=== PATIENT | male | born 1970 | race Caucasian/White ===

== ENCOUNTER 2022-06-15 19:54 | Emergency (ER) | payer SELFPAY ==
--- NOTE | 2022-06-15 20:40 | RAD REPORT ---
EXAM DESCRIPTION: CT - Ct Stroke Brain Wo Cont - 06/15/2022 8:29 pm CLINICAL HISTORY: Left-sided numbness COMPARISON: none TECHNIQUE: Computed axial tomography of the head was obtained. All CT scans are performed using dose optimization technique as appropriate and may include automated exposure control or mA/KV adjustment according to patient size. FINDINGS: An intracranial bleed is not seen . The ventricles are normal in caliber. No extra-axial fluid collection is noted. Low density area left internal capsule and right frontal lobe have the appearance of old infarction. Fluid within the sinuses/ mastoids is not seen. IMPRESSION: No acute intracranial abnormality is seen. If patient's symptoms persist MRI of the bra in would be recommended. Dr Honeycutt of the emergency room was notified at 8:29 p.m. June 15, 2022
[2022-06-15 21:08] LABS: Lymphocytes % 17.6 % (15.3-44.8); MPV 8.2 fL (7.6-11.3); RBC Red Blood Cell Count 5.22 M/uL (4.33-5.43)
[2022-06-15 21:13] LABS: Potassium 3.8 mmol/L (3.5-5.1)
[2022-06-15] MEDS ORDERED: TENECTEPLASE 50 MG/10 ML VIAL IV ONE (21:14)
[2022-06-15] MEDS ORDERED: LABETALOL 20 MG/4ML SYRINGE IV ONE (21:14)
[2022-06-15] MEDS ORDERED: FOLIC ACID 5 MG/ML VIAL ONE (21:15)
[2022-06-15] MEDS ORDERED: NA CHLORIDE 0.9% 1,000 ML ONE (21:15)
--- NOTE | 2022-06-15 21:17 | ER ---
Nurse's Notes [facility] Name: Trevor Carrera Age: 52 yrs Sex: Male : 1970 Arrival Date: 06/15/2022 Time: 19:55 Bed 7 Private MD: Diagnosis: Dizziness and giddiness;Other visual disturbances;Paresthesia of skin-left hand Presentation: 06/15 20:00 Chief complaint: Patient states: "Earlier today I was feeling what I thought was a tw5 manolo horse in the back of my neck. I went home took a nap and when I got up I was feeling dizzy and had some blurred vision. Right before going into work I started feeling numbness and tingling down my left arm.". Coronavirus screen: Vaccine status: Patient reports receiving the 2nd dose of the covid vaccine. Unknown. Ebola Screen: Patient negative for fever greater than or equal to 101.5 degrees Fahrenheit, and additional compatible Ebola Virus Disease symptoms Patient denies exposure to infectious person. Patient denies travel to an Ebola-affected area in the 21 days before illness onset. Initial Sepsis Screen: Does the patient meet any 2 criteria? No. Patient's initial sepsis screen is negative. Does the patient have a suspected source of infection? No. Patient's initial sepsis screen is negative. Risk Assessment: Do you want to hurt yourself or someone else? Patient reports no desire to harm self or others. Onset of symptoms was June 15, 2022 at 18:00. 20:00 Method Of Arrival: Ambulatory tw5 20:00 Acuity: SARA 2 tw5 20:04 An acute neurological deficit is present. The charge nurse has been notified. tw5 06/16 00:22 Pre-hospital glucose is not applicable to this patient. Triage Assessment: 06/15 20:00 The onset of the patients symptoms was less than three hours ago. 20:03 General: Appears in no apparent distress. Behavior is calm, cooperative, appropriate tw5 for age. Pain: Denies pain. 20:04 Neuro: Reports blurred vision. tw5 06/16 00:22 The onset of the patients symptoms was June 15, 2022 at 19:00. Stroke Activation: Symptom onset < 3 hours Physician: Stroke Attending; Name: ; Notified At: ; Arrived At: Physician: Chief Stroke Resident; Name: ; Notified At: ; Arrived At: Physician: Stroke Resident; Name: ; Notified At: ; Arrived At: Physician: ED Attending; Name: ; Notified At: ; Arrived At: Physician: ED Resident; Name: cristal; Notified At: ; Arrived At: Historical: - Allergies: 06/15 20:03 PENICILLINS; tw5 20:03 Iodine; tw5 - PMHx: 20:03 CVA; 2019; Hypertensive disorder; tw5 - Immunization history:: Flu vaccine is not up to date. - Social history:: Smoking status: Patient reports the use of cigarette tobacco products, smokes one pack cigarettes per day. Screenin:30 Abuse screen: Denies threats or abuse. Nutritional screening: No deficits noted. kl Tuberculosis screening: No symptoms or risk factors identified. Fall Risk Secondary diagnosis (15 points) CVA. Assessment: 20:20 VAN Scoring: Arm Drift: Patients demonstrates NO arm weakness. Patient is VAN Negative. Visual Disturbance: No visual disturbance noted. Aphasia: No aphasia noted. Neglect: No neglect noted. TNKase (Tenecteplase) Screening: Indications: Definite evidence of stroke, ischemic, embolic, or hypertensive: Yes. Treatment will start within 4.5 hours onset of symptoms: Yes. No evidence of intracranial hemorrhage or CT of head and no evidence of peripheral hemorrhage or recent CVA: Yes. Contraindications:. 20:25 Patient has been NPO before screening. The patient is alert, and able to follow commands. The patient does not exhibit slurred or garbled speech. The patient is not exhibiting difficulty speaking. The patient does not exhibit difficulty understanding words. The patient is able to swallow own secretions with no drooling or need for suction. Patient tolerated one teaspoon of water. No drooling, immediate coughing, gurgling, or clearing of the throat was noted. The patient tolerated 90mL of water. No drooling, immediate coughing, gurgling, or clearing of the throat was noted. The patient passed the bedside swallow screening. Oral medications may be given as ordered. Contact Physician for further diet orders. Provider notified of bedside swallow screening results: Grupo CARDOSO. 21:30 Reassessment: Patient appears in no apparent distress at this time. Patient and/or kl family updated on plan of care and expected duration. Pain level reassessed. Patient is alert, oriented x 3, equal unlabored respirations, skin warm/dry/pink. Patient states feeling better. Patient states symptoms have improved. 22:00 Reassessment: Patient appears in no apparent distress at this time. Patient and/or family updated on plan of care and expected duration. Pain level reassessed. Patient is alert, oriented x 3, equal unlabored respirations, skin warm/dry/pink. 23:00 Reassessment: Patient appears in no apparent distress at this time. No changes from previously documented assessment. Patient and/or family updated on plan of care and expected duration. Pain level reassessed. Patient is alert, oriented x 3, equal unlabored respirations, skin warm/dry/pink. 23:30 Reassessment: Patient appears in no apparent distress at this time. No changes from previously documented assessment. Patient and/or family updated on plan of care and expected duration. Pain level reassessed. Patient is alert, oriented x 3, equal unlabored respirations, skin warm/dry/pink. 06/16 01:01 Reassessment: Patient appears in no apparent distress at this time. pt sleeping kl respirations even nonlabored. Vital Signs: 06/15 20:00 BP 189 / 102; Pulse 93; Resp 18; Temp 98.6; Pulse Ox 98% on R/A; Weight 118.84 kg; tw5 Height 6 ft. 6 in. (198.12 cm); Pain 5/10; 20:20 BP 183 / 98; Pulse 80; Resp 18; Pulse Ox 99% on R/A; kl 21:00 Weight 116.89 kg; kl 21:30 BP 158 / 108; Pulse 75; Resp 16; Pulse Ox 98% ; kl 22:00 BP 170 / 91; Pulse 73; Pulse Ox 100% on R/A; kl 22:46 BP 170 / 91; Pulse 78; Resp 18; Pulse Ox 97% on R/A; tw5 06/16 00:32 BP 146 / 83; Pulse 80; Pulse Ox 94% ; 06/15 21:00 Body Mass Index 29.78 (116.89 kg, 198.12 cm) NIH Stroke Scale Scores: 06/15 20:17 NIHSS Score: 1 20:20 NIHSS Score: 1 kl 22:00 NIHSS Score: 0 kl 22:30 NIHSS Score: 0 ED Course: 19:55 Patient arrived in ED. am2 20:00 Arm band placed on right wrist. kl 20:00 Patient has correct armband on for positive identification. kl 20:03 Triage completed. tw5 20:27 Grupo Gonzalez PA is PHCP. cp 20:27 Grupo Honeycutt MD is Attending Physician. cp 20:30 CT Stroke Brain w/o Contrast In Process Unspecified. EDMS 20:41 Inserted saline lock: 20 gauge hand, using aseptic technique. Blood collected. oe 20:46 Basic Metabolic Panel Sent. oe 20:46 CBC with Diff Sent. oe 20:46 Protime (+inr) Sent. oe 20:46 Ptt, Activated Sent. oe 20:57 intiated a transfer with aCyla from [facility]. mw2 21:00 No apparent distress. Resting quietly. NHISS score 0 all symptoms resolved no kl complaints at this time. 21:07 Inserted saline lock: 20 gauge in right antecubital area, using aseptic technique. zm 21:08 Connected Grupo CARDOSO with the Doctor from [facility]. mw2 21:16 Stroke CXR 1 View In Process Unspecified. EDMS 21:23 Cayla Fabian from [facility] informed us that the patient will have a mw2 bed they are waiting for the ICU bed to be cleaned. 21:36 SARS RAPID Sent. zm 22:08 Cayla Fabian from [facility] called to update us that they are doing a mw2 STAT clean on the bed and will call back in 30 minutes. 22:20 initiated a transfer with Minnie from [facility]. mw2 22:26 Cheondoism denied due to capacity. mw2 22:29 CT Head Angio In Process Unspecified. EDMS 22:29 CT Neck Angio In Process Unspecified. EDMS 22:33 administrative approval given by Cayla Fabian/ patient has been accepted to [address] bed 7519/Dr. Egan accepted the patient in transfer at 2113/ report to be called to [phone]. 22:43 intiaited a transfer with Leo from [facility]. mw2 23:13 Connected Grupo CARDOSO with the Neurologist from [facility]. mw2 23:37 administrative approval given by Leo Burleson/ patient has been accepted to [facility] mw2 [place] to [facility] 8 A 812/ Dr. Garcia accepted the patient in transfer/ report to be called to [phone]. 23:44 contacted [facility] spoke to [place] to cancel the transfer per patient mw2 request. 23:53 Grey Lucio RN is Primary Nurse. as6 06/16 00:20 No provider procedures requiring assistance completed. Patient transferred, IV remains kl in place. 01:19 Primary Nurse role handed off by Grey Lucio, GARETH cp Administered Medications: 06/15 20:47 CANCELLED (Physician Discretion): Metoprolol 5 mg IVP once; Hold for SBP <100 or HR <60.cp 20:47 CANCELLED (Physician Discretion): Metoprolol 50 mg PO once cp 20:52 CANCELLED (Physician Discretion): Aspirin Chewable Tablet 81 mg PO once cp 21:20 Drug: NS 0.9% 1000 ml Route: IV; Rate: 1 bolus; Site: right antecubital; kl 21:20 Drug: foLIC Acid 1 mg Route: IVPB; Site: right antecubital; kl 21:20 Drug: Trandate (labetalol) 10 mg Route: IV; Rate: calculated rate; Site: right kl antecubital; 21:26 Drug: TNK FOR STROKE - Tenecteplase 0.25 mg/kg {Co-Signature: ll3 (Gilles carreno RN).} Route: IV; Rate: per protocol; Site: right antecubital; 22:12 Drug: SOLU-Medrol (methylPrednisoLONE) 125 mg Route: IVP; Site: right antecubital; kl 23:04 Follow up: Response: No adverse reaction kl 22:15 Drug: Pepcid (famotidine) 20 mg Route: IVP; Site: right antecubital; kl 23:04 Follow up: Response: No adverse reaction kl 22:20 Drug: Benadryl (diphenhydrAMINE) 25 mg Route: IVP; Site: right antecubital; kl 23:04 Follow up: Response: No adverse reaction kl 23:38 Drug: Ativan (LORazepam) 1 mg Route: IVP; Site: right antecubital; 06/16 00:32 Follow up: Response: No adverse reaction; Marked relief of symptoms Medication: 00:24 VIS not applicable for this client. Point of Care Testing: Blood Glucose: 06/15 20:07 Blood Glucose: 136 mg/dL; tw5 Ranges: Outcome: 21:17 ER care complete, transfer ordered by MD. morales 06/16 00:18 Transferred to [facility], Transfer form completed. X-rays sent kl w/ patient. Transferred Note: report called to Annette SERVIN Condition: improved Instructed on the need for transfer, Demonstrated understanding of instructions. 01:08 Patient left the ED. 01:31 Patient left the ED. ll3 NIH Stroke Scale - NIH Stroke Score Date: 06/15/2022 Time: 20:17 Total Score = 1 1a. Level of Consciousness (LOC) - 0(Alert) 1b. Level of Consciousness (LOC) (Month \\T\\ Age) - 0(Both) 1c. LOC Commands (Open \\T\\ Closes Eyes/Chemic Mangler) - 0(Both) 2. Best Gaze (Lateral Gaze Paresis) - 0(Normal) 3. Visual Field Loss - 0(No visual loss) 4. Facial Palsy - 0(Normal) 5a. Left Arm: Motor (10-second hold) - 0(No drift) 5b. Right Arm: Motor (10-second hold) - 0(No drift) 6a. Left Leg: Motor (5-second hold - always test supine) - 0(No drift) 6b. Right Leg: Motor (5-second hold - always test supine) - 0(No drift) 7. Limb Ataxia (finger/nose \\T\\ heel/muhammad - test with eyes open) - 0(Absent) 8. Sensory Loss (pinprick arms/legs/face) - 1(Mild to moderate loss) 9. Best Language: Aphasia (description/naming/reading) - 0(No aphasia) 10. Dysarthria (speech clarity - read or repeat words) - 0(Normal) 11. Extinction and Inattention (visual/tactile/auditory/spatial/personal) - 0(No abnormality) Initials: andrew NIH Stroke Scale - NIH Stroke Score Date: 06/15/2022 Time: 20:20 Total Score = 1 1a. Level of Consciousness (LOC) - 0(Alert) 1b. Level of Consciousness (LOC) (Month \\T\\ Age) - 0(Both) 1c. LOC Commands (Open \\T\\ Closes Eyes/Chemic Mangler) - 0(Both) 2. Best Gaze (Lateral Gaze Paresis) - 0(Normal) 3. Visual Field Loss - 0(No visual loss) 4. Facial Palsy - 0(Normal) 5a. Left Arm: Motor (10-second hold) - 0(No drift) 5b. Right Arm: Motor (10-second hold) - 0(No drift) 6a. Left Leg: Motor (5-second hold - always test supine) - 0(No drift) 6b. Right Leg: Motor (5-second hold - always test supine) - 0(No drift) 7. Limb Ataxia (finger/nose \\T\\ heel/muhammad - test with eyes open) - 0(Absent) 8. Sensory Loss (pinprick arms/legs/face) - 0(Normal) 9. Best Language: Aphasia (description/naming/reading) - 0(No aphasia) 10. Dysarthria (speech clarity - read or repeat words) - 0(Normal) 11. Extinction and Inattention (visual/tactile/auditory/spatial/personal) - 1(Present) Initials: NIH Stroke Scale - NIH Stroke Score Date: 06/15/2022 Time: 22:00 Total Score = 0 1a. Level of Consciousness (LOC) - 0(Alert) 1b. Level of Consciousness (LOC) (Month \\T\\ Age) - 0(Both) 1c. LOC Commands (Open \\T\\ Closes Eyes/Chemic Mangler) - 0(Both) 2. Best Gaze (Lateral Gaze Paresis) - 0(Normal) 3. Visual Field Loss - 0(No visual loss) 4. Facial Palsy - 0(Normal) 5a. Left Arm: Motor (10-second hold) - 0(No drift) 5b. Right Arm: Motor (10-second hold) - 0(No drift) 6a. Left Leg: Motor (5-second hold - always test supine) - 0(No drift) 6b. Right Leg: Motor (5-second hold - always test supine) - 0(No drift) 7. Limb Ataxia (finger/nose \\T\\ heel/muhammad - test with eyes open) - 0(Absent) 8. Sensory Loss (pinprick arms/legs/face) - 0(Normal) 9. Best Language: Aphasia (description/naming/reading) - 0(No aphasia) 10. Dysarthria (speech clarity - read or repeat words) - 0(Normal) 11. Extinction and Inattention (visual/tactile/auditory/spatial/personal) - 0(No abnormality) Initials: wai NIH Stroke Scale - NIH Stroke Score Date: 06/15/2022 Time: 22:30 Total Score = 0 1a. Level of Consciousness (LOC) - 0(Alert) 1b. Level of Consciousness (LOC) (Month \\T\\ Age) - 0(Both) 1c. LOC Commands (Open \\T\\ Closes Eyes/Chemic Mangler) - 0(Both) 2. Best Gaze (Lateral Gaze Paresis) - 0(Normal) 3. Visual Field Loss - 0(No visual loss) 4. Facial Palsy - 0(Normal) 5a. Left Arm: Motor (10-second hold) - 0(No drift) 5b. Right Arm: Motor (10-second hold) - 0(No drift) 6a. Left Leg: Motor (5-second hold - always test supine) - 0(No drift) 6b. Right Leg: Motor (5-second hold - always test supine) - 0(No drift) 7. Limb Ataxia (finger/nose \\T\\ heel/muhammad - test with eyes open) - 0(Absent) 8. Sensory Loss (pinprick arms/legs/face) - 0(Normal) 9. Best Language: Aphasia (description/naming/reading) - 0(No aphasia) 10. Dysarthria (speech clarity - read or repeat words) - 0(Normal) 11. Extinction and Inattention (visual/tactile/auditory/spatial/personal) - 0(No abnormality) Initials: wai Signatures: Dispatcher [employer] EDAshely Haji RN RN Grupo Coburn PA PA cp Espinosa, Phil Trujillo, Char am2 David Mello mw2 Brigette Weaver tw5 Grey Lucio RN RN as6 Gilles Gonzales RN RN ll3 Judie Giles RN ll3 Corrections: (The following items were deleted from the chart) 06/15 20:05 20:04 No acute neurological deficit is noted. tw5 tw5
--- NOTE | 2022-06-15 21:17 | EDPHYS ---
Physician Documentation [facility] Name: Trevor Carrera Age: 52 yrs Sex: Male : 1970 Arrival Date: 06/15/2022 Time: 19:55 Bed 7 Private MD: ED Physician Grupo Honeycutt HPI: 06/15 20:08 This 52 yrs old Male presents to ER via Ambulatory with complaints of Numbness Of Arm, cp Blurred Vision. 20:08 The patient's problem is reported as paresthesias, in left upper extremity, dizziness, cp blurred vision. Onset: The symptoms/episode began/occurred today, about 1900 while driving to work. Duration: The episode is continuous. Patient's baseline: Neuro: alert and fully oriented, Motor: no deficits, Ambulation: walks without assistance, Speech: normal, The patient has a previous history of CVA, HTN. Historical: - Allergies: 20:03 PENICILLINS; tw5 20:03 Iodine; tw5 - PMHx: 20:03 CVA; 2019; Hypertensive disorder; tw - Immunization history:: Flu vaccine is not up to date. - Social history:: Smoking status: Patient reports the use of cigarette tobacco products, smokes one pack cigarettes per day. ROS: 20:10 Constitutional: Negative for body aches, chills, fever, poor PO intake. cp 20:10 Cardiovascular: Negative for chest pain, edema, palpitations. 20:10 Eyes: Positive for visual disturbance, Negative for pain, redness, vision loss. cp 20:10 Neck: Positive for pain at rest. 20:10 Respiratory: Negative for cough, shortness of breath, wheezing. 20:10 Abdomen/GI: Negative for abdominal pain, nausea, vomiting, and diarrhea, constipation. 20:10 Neuro: Positive for dizziness, numbness, of the left arm, Negative for altered mental status, headache, speech changes, syncope, weakness. 20:10 All other systems are negative. cp Exam: 20:15 Radiologist reports: no acute findings cp 20:15 Head/Face: Normocephalic, atraumatic. cp 20:15 Constitutional: The patient appears in no acute distress, alert, awake, comfortable, non-diaphoretic, non-toxic, well developed, well nourished. 20:15 Eyes: Periorbital structures: appear normal, Pupils: equal, round, and reactive to light and accomodation, Extraocular movements: intact throughout, Conjunctiva: normal, no exudate, no injection, Sclera: no appreciated abnormality, Lids and lashes: appear normal, bilaterally, Visual petersen: are intact. 20:15 ENT: External ear(s): are unremarkable, Nose: is normal, Mouth: Lips: moist, Oral mucosa: pink and intact, moist, Posterior pharynx: Airway: no evidence of obstruction, patent, erythema, is not appreciated, exudate, is not appreciated. 20:15 Neck: ROM/movement: is normal, is supple, without pain, no range of motions limitations, no nuchal rigidity. 20:15 Chest/axilla: Inspection: normal, Palpation: is normal, no crepitus, no tenderness. 20:15 Cardiovascular: Rate: normal, Rhythm: regular, Heart sounds: murmur, not appreciated, Edema: is not appreciated, JVD: is not appreciated. 20:15 Respiratory: the patient does not display signs of respiratory distress, Respirations: normal, no use of accessory muscles, no retractions, labored breathing, is not present, Breath sounds: are clear throughout, no decreased breath sounds, no stridor, no wheezing. 20:15 Abdomen/GI: Inspection: abdomen appears normal, Palpation: abdomen is soft and non-tender, in all quadrants. 20:15 Back: pain, is absent, ROM is normal. 20:15 Neuro: Orientation: to person, place \T\ time. Mentation: is normal, Motor: moves all fours, strength is normal, Sensation: numbness, that is mild, of the left arm. 21:00 ECG was reviewed by the Attending Physician. cp Vital Signs: 20:00 BP 189 / 102; Pulse 93; Resp 18; Temp 98.6; Pulse Ox 98% on R/A; Weight 118.84 kg; tw5 Height 6 ft. 6 in. (198.12 cm); Pain 5/10; 20:20 BP 183 / 98; Pulse 80; Resp 18; Pulse Ox 99% on R/A; kl 21:00 Weight 116.89 kg; kl 21:30 BP 158 / 108; Pulse 75; Resp 16; Pulse Ox 98% ; kl 22:00 BP 170 / 91; Pulse 73; Pulse Ox 100% on R/A; kl 22:46 BP 170 / 91; Pulse 78; Resp 18; Pulse Ox 97% on R/A; tw5 06/16 00:32 BP 146 / 83; Pulse 80; Pulse Ox 94% ; kl 06/15 21:00 Body Mass Index 29.78 (116.89 kg, 198.12 cm) kl NIH Stroke Scale Scores: 06/15 20:17 NIHSS Score: 1 cp 20:20 NIHSS Score: 1 kl 22:00 NIHSS Score: 0 kl 22:30 NIHSS Score: 0 kl MDM: 20:29 Patient medically screened. rosa 20:45 Physician consultation: Nish Moreland MD was called at 20:45, was contacted at 20:45, cp regarding patient's condition, recommends administration of tnk. 22:15 Test interpretation: by ED physician or midlevel provider: ECG, plain radiologic cp studies. 22:30 Counseling: I had a detailed discussion with the patient and/or guardian regarding: the cp historical points, exam findings, and any diagnostic results supporting the discharge/admit diagnosis, the presence of at least one elevated blood pressure reading (>120/80) during this emergency department visit, lab results, radiology results, the need to transfer to another facility, for higher level of care, [facility] does not immediately have the required specialist. 22:30 ED course: Patient accepted for transfer to [facility], but refuses transfer and cp requests to be transferred to [facility]. 23:30 Data reviewed: vital signs, nurses notes, lab test result(s), EKG, radiologic studies, cp CT scan, plain films. 23:30 ED course: [facility] at capacity and declined transfer, will transfer to [facility]. cp 06/15 20:18 Order name: Glucose, Ancillary Testing; Complete Time: 21:11 EDMS 06/15 20:24 Order name: Basic Metabolic Panel; Complete Time: 22:11 [facility] 06/15 20:24 Order name: CBC with Diff; Complete Time: 22:11 [facility] 06/15 20:24 Order name: Protime (+inr); Complete Time: 22:11 [facility] 06/15 20:24 Order name: Ptt, Activated; Complete Time: 22:11 [facility] 06/15 20:54 Order name: SARS RAPID; Complete Time: 22:11 [facility] 06/15 20:24 Order name: CT Stroke Brain w/o Contrast; Complete Time: 21:11 mw2 06/15 20:24 Order name: Stroke CXR 1 View; Complete Time: 22:11 mw2 06/15 21:35 Order name: CT Head Angio; Complete Time: 23:21 cp 06/15 21:35 Order name: CT Neck Angio; Complete Time: 23:21 cp 06/15 22:02 Order name: Troponin High Sensitivity; Complete Time: 23:21 cp 06/15 20:24 Order name: EKG; Complete Time: 20:25 mw2 06/15 20:24 Order name: Accucheck; Complete Time: 20:46 mw2 06/15 20:24 Order name: Cardiac monitoring; Complete Time: 21:35 mw2 06/15 20:24 Order name: EKG - Nurse/Tech; Complete Time: 21:36 mw2 06/15 20:24 Order name: IV Saline Lock; Complete Time: 20:46 mw2 06/15 20:24 Order name: Labs collected and sent; Complete Time: 20:47 mw2 06/15 20:24 Order name: NPO; Complete Time: 21:35 mw2 06/15 20:24 Order name: O2 Per Protocol; Complete Time: 21:35 mw2 06/15 20:24 Order name: O2 Sat Monitoring; Complete Time: 21:35 mw2 06/15 20:24 Order name: Stroke Swallow Screen; Complete Time: 21:35 mw2 EC:00 Rate is 84 beats/min. Rhythm is regular. AR interval is normal. QRS interval is normal. cp QT interval is normal. T waves are Flattened in leads I, aVL, aVR. Interpreted by me. Reviewed by me. Administered Medications: 20:47 CANCELLED (Physician Discretion): Metoprolol 5 mg IVP once; Hold for SBP <100 or HR <60.cp 20:47 CANCELLED (Physician Discretion): Metoprolol 50 mg PO once cp 20:52 CANCELLED (Physician Discretion): Aspirin Chewable Tablet 81 mg PO once cp 21:20 Drug: NS 0.9% 1000 ml Route: IV; Rate: 1 bolus; Site: right antecubital; kl 21:20 Drug: foLIC Acid 1 mg Route: IVPB; Site: right antecubital; kl 21:20 Drug: Trandate (labetalol) 10 mg Route: IV; Rate: calculated rate; Site: right kl antecubital; 21:26 Drug: TNK FOR STROKE - Tenecteplase 0.25 mg/kg {Co-Signature: ll3 (Gilles carreno RN).} Route: IV; Rate: per protocol; Site: right antecubital; 22:12 Drug: SOLU-Medrol (methylPrednisoLONE) 125 mg Route: IVP; Site: right antecubital; kl 23:04 Follow up: Response: No adverse reaction kl 22:15 Drug: Pepcid (famotidine) 20 mg Route: IVP; Site: right antecubital; kl 23:04 Follow up: Response: No adverse reaction kl 22:20 Drug: Benadryl (diphenhydrAMINE) 25 mg Route: IVP; Site: right antecubital; kl 23:04 Follow up: Response: No adverse reaction kl 23:38 Drug: Ativan (LORazepam) 1 mg Route: IVP; Site: right antecubital; 06/16 00:32 Follow up: Response: No adverse reaction; Marked relief of symptoms Point of Care Testing: Blood Glucose: 06/15 20:07 Blood Glucose: 136 mg/dL; tw5 Ranges: Critical Glucose Levels:Adult <50 mg/dl or >400 mg/dl <40 mg/dl or >180 mg/dl Disposition Summary: 06/15/22 21:17 Transfer Ordered Transfer Location: [facility] cp Reason: Higher level of care cp Condition: Stable cp Problem: new cp Symptoms: have improved cp Accepting Physician: DR Garcia(06/16/22 01:31) ll3 Diagnosis - Dizziness and giddiness cp - Other visual disturbances cp - Paresthesia of skin - left hand cp Forms: - Medication Reconciliation Form cp - SBAR form cp NIH Stroke Scale - NIH Stroke Score Date: 06/15/2022 Time: 20:17 Total Score = 1 1a. Level of Consciousness (LOC) - 0(Alert) 1b. Level of Consciousness (LOC) (Month \T\ Age) - 0(Both) 1c. LOC Commands (Open \T\ Closes Eyes/Director Of Clinical Applications) - 0(Both) 2. Best Gaze (Lateral Gaze Paresis) - 0(Normal) 3. Visual Field Loss - 0(No visual loss) 4. Facial Palsy - 0(Normal) 5a. Left Arm: Motor (10-second hold) - 0(No drift) 5b. Right Arm: Motor (10-second hold) - 0(No drift) 6a. Left Leg: Motor (5-second hold - always test supine) - 0(No drift) 6b. Right Leg: Motor (5-second hold - always test supine) - 0(No drift) 7. Limb Ataxia (finger/nose \T\ heel/muhammad - test with eyes open) - 0(Absent) 8. Sensory Loss (pinprick arms/legs/face) - 1(Mild to moderate loss) 9. Best Language: Aphasia (description/naming/reading) - 0(No aphasia) 10. Dysarthria (speech clarity - read or repeat words) - 0(Normal) 11. Extinction and Inattention (visual/tactile/auditory/spatial/personal) - 0(No abnormality) Initials: cp NIH Stroke Scale - NIH Stroke Score Date: 06/15/2022 Time: 20:20 Total Score = 1 1a. Level of Consciousness (LOC) - 0(Alert) 1b. Level of Consciousness (LOC) (Month \T\ Age) - 0(Both) 1c. LOC Commands (Open \T\ Closes Eyes/Director Of Clinical Applications) - 0(Both) 2. Best Gaze (Lateral Gaze Paresis) - 0(Normal) 3. Visual Field Loss - 0(No visual loss) 4. Facial Palsy - 0(Normal) 5a. Left Arm: Motor (10-second hold) - 0(No drift) 5b. Right Arm: Motor (10-second hold) - 0(No drift) 6a. Left Leg: Motor (5-second hold - always test supine) - 0(No drift) 6b. Right Leg: Motor (5-second hold - always test supine) - 0(No drift) 7. Limb Ataxia (finger/nose \T\ heel/muhammad - test with eyes open) - 0(Absent) 8. Sensory Loss (pinprick arms/legs/face) - 0(Normal) 9. Best Language: Aphasia (description/naming/reading) - 0(No aphasia) 10. Dysarthria (speech clarity - read or repeat words) - 0(Normal) 11. Extinction and Inattention (visual/tactile/auditory/spatial/personal) - 1(Present) Initials: NIH Stroke Scale - NIH Stroke Score Date: 06/15/2022 Time: 22:00 Total Score = 0 1a. Level of Consciousness (LOC) - 0(Alert) 1b. Level of Consciousness (LOC) (Month \T\ Age) - 0(Both) 1c. LOC Commands (Open \T\ Closes Eyes/Director Of Clinical Applications) - 0(Both) 2. Best Gaze (Lateral Gaze Paresis) - 0(Normal) 3. Visual Field Loss - 0(No visual loss) 4. Facial Palsy - 0(Normal) 5a. Left Arm: Motor (10-second hold) - 0(No drift) 5b. Right Arm: Motor (10-second hold) - 0(No drift) 6a. Left Leg: Motor (5-second hold - always test supine) - 0(No drift) 6b. Right Leg: Motor (5-second hold - always test supine) - 0(No drift) 7. Limb Ataxia (finger/nose \T\ heel/muhammad - test with eyes open) - 0(Absent) 8. Sensory Loss (pinprick arms/legs/face) - 0(Normal) 9. Best Language: Aphasia (description/naming/reading) - 0(No aphasia) 10. Dysarthria (speech clarity - read or repeat words) - 0(Normal) 11. Extinction and Inattention (visual/tactile/auditory/spatial/personal) - 0(No abnormality) Initials: NIH Stroke Scale - NIH Stroke Score Date: 06/15/2022 Time: 22:30 Total Score = 0 1a. Level of Consciousness (LOC) - 0(Alert) 1b. Level of Consciousness (LOC) (Month \T\ Age) - 0(Both) 1c. LOC Commands (Open \T\ Closes Eyes/Director Of Clinical Applications) - 0(Both) 2. Best Gaze (Lateral Gaze Paresis) - 0(Normal) 3. Visual Field Loss - 0(No visual loss) 4. Facial Palsy - 0(Normal) 5a. Left Arm: Motor (10-second hold) - 0(No drift) 5b. Right Arm: Motor (10-second hold) - 0(No drift) 6a. Left Leg: Motor (5-second hold - always test supine) - 0(No drift) 6b. Right Leg: Motor (5-second hold - always test supine) - 0(No drift) 7. Limb Ataxia (finger/nose \T\ heel/muhammad - test with eyes open) - 0(Absent) 8. Sensory Loss (pinprick arms/legs/face) - 0(Normal) 9. Best Language: Aphasia (description/naming/reading) - 0(No aphasia) 10. Dysarthria (speech clarity - read or repeat words) - 0(Normal) 11. Extinction and Inattention (visual/tactile/auditory/spatial/personal) - 0(No abnormality) Initials: kl Signatures: Dispatcher [employer] EDMS Ashely López RN Grupo Clement MD MD cha Page, Corey, PA PA cp [place], MyKena mw2 Kendrick Balbuena DO DO ms3 Brigette Weaver tw5 Gilles Gonzales RN RN ll3 Gilles Gonzales RN ll3 Corrections: (The following items were deleted from the chart) 20:47 20:35 Metoprolol 5 mg IVP once; Hold for SBP <100 or HR <60. ordered. [facility] 20:47 20:35 Metoprolol 50 mg PO once ordered. [facility] 20:52 20:35 Aspirin Chewable Tablet 81 mg PO once ordered. [facility] 06/16 01:08 06/15 21:17 Doctor andrew 06/16 01:19 01:08 Doctor [facility] 01:31 01:19 DR Garcia cp ll3 23:36 06/15 20:33 Constitutional: Negative for body aches, chills, fever, poor PO cp intake, cp 06/16 23:36 06/15 20:33 Cardiovascular: Negative for chest pain, edema, palpitations, cp 06/16 23:37 06/15 20:30 This 52 yrs old Male presents to ER via Ambulatory with complaints cp of Numbness Of Arm, Blurred Vision. cp 06/16 23:37 06/15 20:30 The patient's problem is reported as paresthesias, in left upper cp extremity, dizziness, blurred vision, cp 06/16 23:37 06/15 20:30 Onset: The symptoms/episode began/occurred today, about 1900 while cp driving to work, cp 06/16 23:37 06/15 20:30 Duration: The episode is continuous, cp cp 06/16 23:37 06/15 20:30 Patient's baseline: Neuro: alert and fully oriented, Motor: no cp deficits, Ambulation: walks without assistance, Speech: normal, The patient has a previous history of CVA, HTN, cp 06/16 23:42 06/15 20:35 NIHSS Score: 1 cp cp 06/16 23:50 06/15 22:30 ED course: Patient accepted for transfer to [facility], but cp refuses transfer and requests to be transferred to [facility] or [facility]. cp
--- NOTE | 2022-06-15 21:24 | RAD REPORT ---
EXAM DESCRIPTION: Yane Single View06/15/2022 9:14 pm CLINICAL HISTORY: CVA/hypertension COMPARISON: none FINDINGS: The lungs appear clear of acute infiltrate. The heart is normal size IMPRESSION: No acute abnormalities displayed
[2022-06-15 21:53] LABS: SARS-CoV-2 Antigen Rapid Res Negative (Negative)
[2022-06-15] MEDS ORDERED: METHYLPREDNISOLONE 125 MG INJ ONE (22:24)
[2022-06-15] MEDS ORDERED: DIPHENHYDRAMINE 50 MG/ML VIAL ONE (22:25)
[2022-06-15] MEDS ORDERED: FAMOTIDINE 20 MG/2 ML VIAL IV ONE (22:25)
--- NOTE | 2022-06-15 23:00 | RAD REPORT ---
EXAM DESCRIPTION: Josette Angio06/15/2022 10:27 pm CLINICAL HISTORY: Left-sided numbness COMPARISON: None TECHNIQUE: 50 cc Isovue 370 was administered intravenously. 3D MIP reconstruction performed All CT scans are performed using dose optimization technique as appropriate and may include automated exposure control or mA/KV adjustment according to patient size. FINDINGS: Plaque within right carotid bulb results in an approximately 50% stenosis. Calcified and noncalcified plaque distal right vertebral artery at the level of the tip of the clivus result in approximately 70-75% stenosis Mild plaque within remainder of common carotid, left internal carotid and left vertebral arteries IMPRESSION: Severe plaque distal right vertebral artery Moderate plaque within right carotid bulb NASCET criteria used. Mild 0-49% stenosis Moderate 50-69% stenosis Severe 70-99% stenosis
--- NOTE | 2022-06-15 23:05 | RAD REPORT ---
EXAM DESCRIPTION: CTHead angio06/15/2022 10:27 pm CLINICAL HISTORY: Left-sided numbness COMPARISON: None TECHNIQUE: CT angiogram of the head was obtained. 3D MIPS reconstruction performed. All CT scans are performed using dose optimization technique as appropriate and may include automated exposure control or mA/KV adjustment according to patient size. FINDINGS: Mild plaque within the distal internal carotid arteries. Basilar, anterior cerebral, middle cerebral and posterior cerebral arteries appear unremarkable. No significant stenosis No aneurysm noted IMPRESSION: No significant abnormality is displayed
[2022-06-15] MEDS ORDERED: LORazepam 2 MG/ML VIAL ONE (23:45)
[2022-06-17 13:02] VITALS: TEMP 98.6
[2022-06-17 14:56] VITALS: BP 158/108; O2SAT 98
--- NOTE | 2022-06-19 06:43 | EKG ---
Test Date: 2022-06-15 Test Time: 20:56:07 Hand Splitter: MILI MEASUREMENT RESULTS: Intervals: Rate: 84 HI: 150 QRSD: 92 QT: 384 QTc: 453 Lamont: P: 49 HI: 150 QRS: 7 T: 63 INTERPRETIVE STATEMENTS: Normal sinus rhythm Possible Left atrial enlargement Anterior infarct, possibly acute ACUTE TN Abnormal ECG No previous ECG available for comparison Electronically Signed On 06-19-22 06:32:51 CDT by Sarthak Gant
== END 2022-06-16 01:31 | disposition short-term general hospital (02) ==
LOC: ER 19:54
DX: R42 Dizziness and giddiness (principal); H53.8 Other visual disturbances; R20.2 Paresthesia of skin; I10 Essential (primary) hypertension; F17.210 Nicotine dependence, cigarettes, uncomplicated; Z86.73 Personal history of transient ischemic attack (TIA), and cerebral infarction without residual deficits; Z20.822 Contact with and (suspected) exposure to COVID-19
CPT/HCPCS: 36415; 70450; 70496; 70498; 71045; 80048; 82947; 84484; 85025; 85610; 85730; 87811; 92977; 93005; 96374; 96375; 99285; J1200; J2930; J3101; J7030; Q9967